=== PATIENT | male | born 1965 | race Caucasian/White ===

== ENCOUNTER 2016-04-26 19:55 | Inpatient (IN) | payer MEDICARE, MEDICAID ==
[~2016-04-26] VITALS: Ht 157.5 cm; Wt 115.7 kg
[~2016-04-26 19:55] MED LIST: AMLODIPINE5 M1 PO; ENALAPRIL MALEA20 MG PO; GLIMEPIRIDE2 M1 PO; LANTI SQ; MET2.5 PO; METFORMIN HCL1000 MG PO; MOTRIN800 MG PO; NOVOLOG MI10 U/0.11 SQ; SIMVASTATIN40 M1 PO; SULFASALAZINE500 M1 PO; ZOF4 PO
[2016-04-26 21:08] LABS: BASOPHIL % 1.8 % (0-2); PLATELET COUNT 188 x10^3mcL (130-400)
[2016-04-26 21:10] LABS: RED CELL DISTRIBUTION WIDTH 15.1 % (11.5-14.5)
[2016-04-26 21:34] LABS: BILIRUBIN TOTAL 0.3 mg/dL (0.20-1.00); CALCIUM 8.2 mg/dL (8.5-10.1); CARBON DIOXIDE 29.8 mmol/L (21-32); POTASSIUM SERUM 4.1 mmol/L (3.5-5.1); TOTAL PROTEIN, SERUM 7.1 g/dL (6.4-8.2)
[2016-04-26 21:36] LABS: CREATININE SERUM 6.7 mg/dL (0.7-1.3)
[2016-04-26 23:40] LABS: microscopic required? YES; urine erythrocyte 2+ (NEGATIVE)
[2016-04-26 23:57] LABS: AMPHETAMINE QUAL UR NONE DETECTED (NEG <=1000)
[2016-04-27] VITALS (9 sets, daily range): BP systolic 140–202; BP diastolic 61–93
[2016-04-27 00:01] LABS: T3 TOTAL 0.79 ng/mL
[2016-04-27 00:02] LABS: CHOLESTEROL/HDL RATIO 4.9
[2016-04-27 00:10] LABS: FREE T4 1.03 ng/dL (0.76-1.46); FREE THYROXINE INDEX 2.3 ug/dL (1.4-4.5); T4(THYROXINE) 6.6 ug/dL (4.7-13.3)
[2016-04-27] MEDS ORDERED: CARVEDILOL12.5 M1 PO (02:45)
[2016-04-27 07:00] LABS: CALCIUM 8.2 mg/dL (8.5-10.1); CARBON DIOXIDE 28.8 mmol/L (21-32); PHOSPHOROUS 6.1 mg/dL (2.5-4.9)
[2016-04-27 07:02] LABS: BASOPHIL % 0.7 % (0-2); PLATELET COUNT 192 x10^3mcL (130-400)
[2016-04-27 07:04] LABS: RED CELL DISTRIBUTION WIDTH 14.9 % (11.5-14.5)
[2016-04-27 07:05] LABS: CREATININE SERUM 6.8 mg/dL (0.7-1.3)
[2016-04-28] VITALS (8 sets, daily range): BP systolic 117–207; BP diastolic 75–96
[2016-04-28 06:39] LABS: BASOPHIL % 0.7 % (0-2); PLATELET COUNT 188 x10^3mcL (130-400)
[2016-04-28 06:49] LABS: RED CELL DISTRIBUTION WIDTH 14.9 % (11.5-14.5)
[2016-04-28 06:55] LABS: CALCIUM 8.1 mg/dL (8.5-10.1); CARBON DIOXIDE 26.2 mmol/L (21-32); MAGNESIUM 1.8 mg/dL (1.8-2.4); PHOSPHOROUS 6.1 mg/dL (2.5-4.9); POTASSIUM SERUM 3.9 mmol/L (3.5-5.1)
[2016-04-28 07:33] LABS: CREATININE SERUM 7.7 mg/dL (0.7-1.3)
[2016-04-29 05:53] VITALS: BP 181/72
[2016-04-29 06:29] VITALS: BP 152/72
[2016-04-29 06:47] LABS: BASOPHIL % 0.8 % (0-2); PLATELET COUNT 214 x10^3mcL (130-400)
[2016-04-29 06:49] LABS: RED CELL DISTRIBUTION WIDTH 15.1 % (11.5-14.5)
[2016-04-29 06:55] LABS: CARBON DIOXIDE 27.5 mmol/L (21-32); MAGNESIUM 1.9 mg/dL (1.8-2.4); POTASSIUM SERUM 3.7 mmol/L (3.5-5.1)
[2016-04-29 07:21] LABS: CREATININE SERUM 6.6 mg/dL (0.7-1.3)
[2016-04-29 09:08] VITALS: BP 147/87
[2016-04-29 09:36] VITALS: BP 152/72
[2016-04-29] MEDS ORDERED: ASPIR 8181 MG PO (11:57)
== END 2016-04-29 15:42 | disposition home or self-care (01) | DRG 438 ==
LOC: ED 19:55 → DU 22:20 → MU 22:20 → DU 23:39 → MU 04-28 10:42
PROVIDERS: Emergency Medicine; Family Medicine; ADMIT Family Medicine
DX: K85.90 Acute pancreatitis without necrosis or infection, unspecified (principal); N17.0 Acute kidney failure with tubular necrosis; N18.6 End stage renal disease; I50.43 Acute on chronic combined systolic (congestive) and diastolic (congestive) heart failure; I13.2 Hypertensive heart and chronic kidney disease with heart failure and with stage 5 chronic kidney disease, or end stage renal disease; E87.1 Hypo-osmolality and hyponatremia; E44.0 Moderate protein-calorie malnutrition; Z68.42 Body mass index [BMI] 45.0-49.9, adult; I42.0 Dilated cardiomyopathy; E11.65 Type 2 diabetes mellitus with hyperglycemia; E11.21 Type 2 diabetes mellitus with diabetic nephropathy; M06.9 Rheumatoid arthritis, unspecified; H91.92 Unspecified hearing loss, left ear; D63.1 Anemia in chronic kidney disease; E78.5 Hyperlipidemia, unspecified; E66.01 Morbid (severe) obesity due to excess calories; H91.8X1 Other specified hearing loss, right ear; Z99.2 Dependence on renal dialysis; Z79.4 Long term (current) use of insulin; Z79.899 Other long term (current) drug therapy; Z79.84 Long term (current) use of oral hypoglycemic drugs
CPT/HCPCS: 80307; 82962; 83880; 84439; J0360; J1815; J2270; J2405; J3490; J7030; J7042; Q0092

== ENCOUNTER → 2016-05-28 | Outpatient (CLI) | payer OTHER, MEDICAID ==
[~2016-05-28] MED LIST changes: +ASPIR 8181 MG PO; +CARVEDILOL12.5 M1 PO
== END | disposition home or self-care (01) ==
LOC: RD 10:17
DX: I50.9 Heart failure, unspecified (principal)

== ENCOUNTER → 2016-11-29 | Outpatient (CLI) | payer OTHER, MEDICAID | END | disposition home or self-care (01) | LOC: RD 11:40 | DX: M54.5 Low back pain (principal) ==

== ENCOUNTER 2016-12-03 05:08 | Inpatient (IN) | payer OTHER, MEDICAID ==
[2016-12-03] VITALS (7 sets, daily range): BP systolic 121–151; BP diastolic 40–64
[~2016-12-03] VITALS: Ht 157.5 cm; Wt 128.8 kg
[~2016-12-03 05:08] MED LIST changes: -AMLODIPINE5 M1 PO; +NOR5 PO
[2016-12-03 07:12] LABS: ALBUMIN 3.5 g/dL (3.4-5.0); BILIRUBIN TOTAL 0.2 mg/dL (0.20-1.00); CALCIUM 8.2 mg/dL (8.5-10.1); CARBON DIOXIDE 22.9 mmol/L (21-32); PLATELET COUNT 227 x10^3mcL (130-400); TOTAL PROTEIN, SERUM 7.7 g/dL (6.4-8.2)
[2016-12-03 07:16] LABS: POTASSIUM SERUM 7.1 mmol/L (3.5-5.1)
[2016-12-03 07:17] LABS: BASOPHIL % 0 % (0-2); CREATININE SERUM 15.4 mg/dL (0.7-1.3); RED CELL DISTRIBUTION WIDTH 16.5 % (11.5-14.5)
[2016-12-03] MEDS ORDERED: TRAMADOL HCL50 MG PO (08:34)
[2016-12-03] MEDS ORDERED: STOOL SOFTENER PO (08:35)
[2016-12-03] MEDS ORDERED: FIBER PO (08:35)
[2016-12-03] MEDS ORDERED: MULTIVITAMIN1 SGL PO (08:35)
[2016-12-03] MEDS ORDERED: ENBREL50 MG/ML (08:36)
[2016-12-03] MEDS ORDERED: ATORVASTATIN CA20 M1 PO (08:36)
[2016-12-03] MEDS ORDERED: AURYXIA1 GM PO (08:37)
[2016-12-03] MEDS ORDERED: CYCLOBENZAPRINE5 MG PO (08:38)
[2016-12-03 08:48] LABS: PHOSPHOROUS 5.7 mg/dL (2.5-4.9)
[2016-12-03 08:50] LABS: CHOLESTEROL/HDL RATIO 4.4
[2016-12-03 08:56] LABS: FREE T4 0.69 ng/dL (0.76-1.46); FREE THYROXINE INDEX 1.7 ug/dL (1.4-4.5); T4(THYROXINE) 4.9 ug/dL (4.7-13.3)
[2016-12-03 09:07] LABS: T3 TOTAL 0.8 ng/mL
[2016-12-03 09:11] LABS: microscopic required? YES; urine erythrocyte 2+ (NEGATIVE)
[2016-12-03 12:54] LABS: CARBON DIOXIDE 25.1 mmol/L (21-32)
[2016-12-03 12:58] LABS: CREATININE SERUM 15.1 mg/dL (0.7-1.3)
[2016-12-03 22:15] LABS: CALCIUM 8.5 mg/dL (8.5-10.1); CARBON DIOXIDE 26.4 mmol/L (21-32); POTASSIUM SERUM 5.5 mmol/L (3.5-5.1)
[2016-12-03 22:21] LABS: CREATININE SERUM 13.9 mg/dL (0.7-1.3)
[2016-12-04 06:14] VITALS: BP 134/68
[2016-12-04 07:10] LABS: CALCIUM 8.3 mg/dL (8.5-10.1); POTASSIUM SERUM 5.4 mmol/L (3.5-5.1)
[2016-12-04 07:13] LABS: CREATININE SERUM 14.3 mg/dL (0.7-1.3)
[2016-12-04 10:31] LABS: CARBON DIOXIDE 26.9 mmol/L (21-32); POTASSIUM SERUM 5.5 mmol/L (3.5-5.1)
[2016-12-04 10:33] LABS: CREATININE SERUM 14.8 mg/dL (0.7-1.3)
[2016-12-04 13:08] VITALS: BP 148/66
[2016-12-04 16:44] VITALS: BP 107/65
[2016-12-04] MEDS ORDERED: CYCLOBENZAPRINE10 MG PO (17:40)
[2016-12-04 18:57] LABS: CALCIUM 8.3 mg/dL (8.5-10.1); CARBON DIOXIDE 29.5 mmol/L (21-32); POTASSIUM SERUM 4.4 mmol/L (3.5-5.1)
[2016-12-04 19:08] LABS: CREATININE SERUM 10.7 mg/dL (0.7-1.3)
[2016-12-04 19:55] VITALS: BP 114/52
[2016-12-04 21:31] VITALS: BP 155/66
[2016-12-05 06:11] VITALS: BP 114/62
[2016-12-05 06:17] LABS: BASOPHIL % 0.9 % (0-2); PLATELET COUNT 220 x10^3mcL (130-400)
[2016-12-05 06:24] LABS: RED CELL DISTRIBUTION WIDTH 16.8 % (11.5-14.5)
[2016-12-05 06:55] LABS: CALCIUM 8.2 mg/dL (8.5-10.1); CARBON DIOXIDE 24.5 mmol/L (21-32); MAGNESIUM 1.9 mg/dL (1.8-2.4); PHOSPHOROUS 7.1 mg/dL (2.5-4.9); POTASSIUM SERUM 5.2 mmol/L (3.5-5.1)
[2016-12-05 07:27] LABS: CREATININE SERUM 12.5 mg/dL (0.7-1.3)
[2016-12-05 09:36] VITALS: BP 141/70
[2016-12-05 11:27] VITALS: BP 141/70
== END 2016-12-05 12:15 | disposition home or self-care (01) | DRG 551 ==
LOC: ED 05:08 → DU 08:03
PROVIDERS: Emergency Medicine; Internal Medicine; ADMIT Family Medicine
PROC: 05HN33Z Insertion of Infusion Device into Left Internal Jugular Vein, Percutaneous Approach (ICD-10-PCS; principal; 2016-12-03)
PROC: B544ZZA Ultrasonography of Left Jugular Veins, Guidance (ICD-10-PCS; 2016-12-03)
DX: M62.830 Muscle spasm of back (principal); N17.0 Acute kidney failure with tubular necrosis; N18.6 End stage renal disease; E43 Unspecified severe protein-calorie malnutrition; I12.0 Hypertensive chronic kidney disease with stage 5 chronic kidney disease or end stage renal disease; E87.1 Hypo-osmolality and hyponatremia; Z68.43 Body mass index [BMI] 50.0-59.9, adult; T82.868A Thrombosis due to vascular prosthetic devices, implants and grafts, initial encounter; E11.22 Type 2 diabetes mellitus with diabetic chronic kidney disease; E11.65 Type 2 diabetes mellitus with hyperglycemia; E87.5 Hyperkalemia; E87.8 Other disorders of electrolyte and fluid balance, not elsewhere classified; E83.51 Hypocalcemia; D63.1 Anemia in chronic kidney disease; E83.39 Other disorders of phosphorus metabolism; K21.9 Gastro-esophageal reflux disease without esophagitis; M06.9 Rheumatoid arthritis, unspecified; G47.33 Obstructive sleep apnea (adult) (pediatric); E66.01 Morbid (severe) obesity due to excess calories; Z99.2 Dependence on renal dialysis; Z79.82 Long term (current) use of aspirin; Z79.4 Long term (current) use of insulin
CPT/HCPCS: 82962; 83880; 84439; A4719; J1642; J1815; J1940; J2060; J3010; J3490; J7030; Q0092

== ENCOUNTER 2017-08-23 10:11 | Inpatient (IN) | payer OTHER, MEDICAID ==
[~2017-08-23] VITALS: Ht 157.5 cm; Wt 122.5 kg
[~2017-08-23 10:11] MED LIST changes: +ATORVASTATIN CA20 M1 PO; +AURYXIA1 GM PO; +CYCLOBENZAPRINE10 MG PO; +CYCLOBENZAPRINE5 MG PO; +ENBREL50 MG/ML; +FIBER PO; +MULTIVITAMIN1 SGL PO; +STOOL SOFTENER PO; +TRAMADOL HCL50 MG PO
[2017-08-23 10:43] LABS: BASOPHIL % 1.5 % (0-2); PLATELET COUNT 294 x10^3mcL (130-400)
[2017-08-23 10:49] LABS: RED CELL DISTRIBUTION WIDTH 17.2 % (11.5-14.5)
[2017-08-23 11:12] LABS: BILIRUBIN TOTAL 0.37 mg/dL (0.20-1.00); CALCIUM 9.4 mg/dL (8.5-10.1); CARBON DIOXIDE 29.4 mmol/L (21-32); POTASSIUM SERUM 4.1 mmol/L (3.5-5.1); TOTAL PROTEIN, SERUM 8.1 g/dL (6.4-8.2)
[2017-08-23 11:15] LABS: CREATININE SERUM 4.7 mg/dL (0.7-1.3)
[2017-08-23 12:11] LABS: UA SPECIFIC GRAVITY 1.015 (1.005-1.035); microscopic required? YES; urine erythrocyte NEGATIVE (NEGATIVE)
[2017-08-23 13:18] LABS: MAGNESIUM 1.8 mg/dL (1.8-2.4); PHOSPHOROUS 2.1 mg/dL (2.5-4.9)
[2017-08-23 13:19] LABS: CHOLESTEROL/HDL RATIO 13.1
[2017-08-23 13:22] LABS: AMPHETAMINE QUAL UR NONE DETECTED (See below)
[2017-08-23 13:23] LABS: T3 TOTAL 0.63 ng/mL
[2017-08-23 13:25] LABS: FREE T4 1.11 ng/dL (0.76-1.46); FREE THYROXINE INDEX 2.3 ug/dL (1.4-4.5); T4(THYROXINE) 5.8 ug/dL (4.7-13.3)
[2017-08-23 14:26] VITALS: BP 100/51
[2017-08-23 17:35] VITALS: BP 122/59
[2017-08-24 05:30] VITALS: BP 129/67
[2017-08-24 06:27] LABS: BASOPHIL % 0.4 % (0-2); PLATELET COUNT 272 x10^3mcL (130-400)
[2017-08-24 06:49] LABS: RED CELL DISTRIBUTION WIDTH 17.6 % (11.5-14.5)
[2017-08-24 06:56] LABS: CARBON DIOXIDE 26.6 mmol/L (21-32); POTASSIUM SERUM 4.4 mmol/L (3.5-5.1)
[2017-08-24 07:01] LABS: CREATININE SERUM 6.7 mg/dL (0.7-1.3)
[2017-08-24 07:02] LABS: IRON 29 ug/dL (65-170); TOTAL IRON BINDING CAPACITY 145 ug/dL (250-450)
[2017-08-24 09:32] VITALS: BP 159/67
[2017-08-24 13:59] VITALS: BP 162/77
[2017-08-24 16:39] VITALS: BP 138/65
[2017-08-24 21:43] VITALS: BP 143/84
[2017-08-24 21:52] VITALS: Ht 157.5 cm; Wt 122.5 kg
[2017-08-25 05:50] VITALS: BP 175/60
[2017-08-25 09:02] VITALS: BP 151/56
[2017-08-25 10:40] LABS: BASOPHIL % 0.1 % (0-2); PLATELET COUNT 303 x10^3mcL (130-400)
[2017-08-25 10:55] LABS: CALCIUM 9.4 mg/dL (8.5-10.1); CARBON DIOXIDE 25.8 mmol/L (21-32); POTASSIUM SERUM 4.4 mmol/L (3.5-5.1)
[2017-08-25 11:01] LABS: CREATININE SERUM 8.9 mg/dL (0.7-1.3)
[2017-08-25 13:45] VITALS: BP 147/75
[2017-08-25 17:17] VITALS: BP 143/57
[2017-08-25 20:50] VITALS: BP 126/48
[2017-08-26 05:14] VITALS: BP 140/57
[2017-08-26 06:15] LABS: CALCIUM 8.2 mg/dL (8.5-10.1); CARBON DIOXIDE 25.1 mmol/L (21-32); POTASSIUM SERUM 4.4 mmol/L (3.5-5.1)
[2017-08-26 06:18] LABS: BASOPHIL % 0.3 % (0-2); PLATELET COUNT 257 x10^3mcL (130-400)
[2017-08-26 06:26] LABS: CREATININE SERUM 8.9 mg/dL (0.7-1.3)
[2017-08-26 06:45] LABS: RED CELL DISTRIBUTION WIDTH 17.4 % (11.5-14.5)
[2017-08-26 08:56] VITALS: BP 148/66
[2017-08-26 14:40] VITALS: BP 153/66
[2017-08-26 17:45] VITALS: BP 151/56
[2017-08-26 21:16] VITALS: BP 141/70
[2017-08-27 06:25] VITALS: BP 136/74
[2017-08-27 06:33] LABS: BASOPHIL % 0.5 % (0-2); PLATELET COUNT 239 x10^3mcL (130-400)
[2017-08-27 06:41] LABS: CALCIUM 8.9 mg/dL (8.5-10.1); CARBON DIOXIDE 21.2 mmol/L (21-32); MAGNESIUM 2.1 mg/dL (1.8-2.4); PHOSPHOROUS 5.6 mg/dL (2.5-4.9); POTASSIUM SERUM 4.4 mmol/L (3.5-5.1)
[2017-08-27 06:44] LABS: RED CELL DISTRIBUTION WIDTH 17.2 % (11.5-14.5)
[2017-08-27 06:45] LABS: CREATININE SERUM 10.2 mg/dL (0.7-1.3)
[2017-08-27 09:41] VITALS: BP 161/64
[2017-08-27 12:49] VITALS: BP 141/43
[2017-08-27 17:55] VITALS: BP 154/66
[2017-08-27 20:35] VITALS: BP 139/67
[2017-08-28 05:46] VITALS: BP 114/53
[2017-08-28 06:32] LABS: BASOPHIL % 0.4 % (0-2); PLATELET COUNT 277 x10^3mcL (130-400)
[2017-08-28 07:13] LABS: CALCIUM 8.8 mg/dL (8.5-10.1); CARBON DIOXIDE 19.4 mmol/L (21-32); POTASSIUM SERUM 5.1 mmol/L (3.5-5.1)
[2017-08-28 07:17] LABS: RED CELL DISTRIBUTION WIDTH 16.9 % (11.5-14.5)
[2017-08-28 07:22] LABS: CREATININE SERUM 11.9 mg/dL (0.7-1.3)
[2017-08-28 09:06] VITALS: BP 151/67
[2017-08-28 11:48] VITALS: BP 173/58
[2017-08-28 17:08] VITALS: BP 167/79
[2017-08-28 20:58] VITALS: BP 118/63
[2017-08-29 06:16] VITALS: BP 140/58
[2017-08-29 07:54] LABS: BASOPHIL % 0.5 % (0-2); PLATELET COUNT 253 x10^3mcL (130-400)
[2017-08-29 08:00] LABS: RED CELL DISTRIBUTION WIDTH 17.2 % (11.5-14.5)
[2017-08-29 08:14] LABS: CARBON DIOXIDE 22.6 mmol/L (21-32); POTASSIUM SERUM 5.2 mmol/L (3.5-5.1)
[2017-08-29 09:30] VITALS: BP 130/56
[2017-08-29 10:09] LABS: CREATININE SERUM 13.7 mg/dL (0.7-1.3)
[2017-08-29 12:30] VITALS: BP 108/57
[2017-08-29 13:14] VITALS: BP 125/68
[2017-08-29 18:12] VITALS: BP 131/61
[2017-08-29 21:44] VITALS: BP 132/53
[2017-08-30 06:00] VITALS: BP 141/59
[2017-08-30 06:43] LABS: BASOPHIL % 0.6 % (0-2); PLATELET COUNT 245 x10^3mcL (130-400)
[2017-08-30 06:46] LABS: CARBON DIOXIDE 27.6 mmol/L (21-32); MAGNESIUM 1.9 mg/dL (1.8-2.4); PHOSPHOROUS 6.6 mg/dL (2.5-4.9); POTASSIUM SERUM 4.3 mmol/L (3.5-5.1)
[2017-08-30 06:48] LABS: CREATININE SERUM 9.9 mg/dL (0.7-1.3)
[2017-08-30 06:52] LABS: RED CELL DISTRIBUTION WIDTH 17.2 % (11.5-14.5)
[2017-08-30 14:11] VITALS: BP 147/71
[2017-08-30 17:51] VITALS: BP 135/45
[2017-08-30 21:05] VITALS: BP 166/60
[2017-08-31 01:44] VITALS: BP 152/65
[2017-08-31 05:02] VITALS: BP 147/65
[2017-08-31 09:32] VITALS: BP 138/66
[2017-08-31 09:48] LABS: CALCIUM 8.6 mg/dL (8.5-10.1); CARBON DIOXIDE 27.6 mmol/L (21-32); POTASSIUM SERUM 4.1 mmol/L (3.5-5.1)
[2017-08-31 09:52] LABS: CREATININE SERUM 9.3 mg/dL (0.7-1.3)
[2017-08-31 13:21] VITALS: BP 145/71
[2017-08-31] MEDS ORDERED: Z5 PO (13:40)
[2017-08-31] MEDS ORDERED: LASIX40 MG PO (13:40)
[2017-08-31] MEDS ORDERED: CIPRO500 MG PO (13:41)
[2017-08-31 16:30] VITALS: BP 145/71
== END 2017-08-31 17:31 | disposition home or self-care (01) | DRG 264 ==
LOC: ED 10:11 → DU 11:46
PROVIDERS: Emergency Medicine; Family Medicine; Internal Medicine; Internal Medicine Nephrology; Surgery
PROC: 05PY33Z Removal of Infusion Device from Upper Vein, Percutaneous Approach (ICD-10-PCS; 2017-08-24)
PROC: 05H533Z Insertion of Infusion Device into Right Subclavian Vein, Percutaneous Approach (ICD-10-PCS; 2017-08-27)
PROC: 03180JD Bypass Left Brachial Artery to Upper Arm Vein with Synthetic Substitute, Open Approach (ICD-10-PCS; principal; 2017-08-27 13:00)
DX: T82.7XXA Infection and inflammatory reaction due to other cardiac and vascular devices, implants and grafts, initial encounter (principal); N18.6 End stage renal disease; A41.59 Other Gram-negative sepsis; N17.0 Acute kidney failure with tubular necrosis; N25.81 Secondary hyperparathyroidism of renal origin; Z68.42 Body mass index [BMI] 45.0-49.9, adult; N39.0 Urinary tract infection, site not specified; I12.0 Hypertensive chronic kidney disease with stage 5 chronic kidney disease or end stage renal disease; E11.22 Type 2 diabetes mellitus with diabetic chronic kidney disease; E11.65 Type 2 diabetes mellitus with hyperglycemia; E11.21 Type 2 diabetes mellitus with diabetic nephropathy; E11.42 Type 2 diabetes mellitus with diabetic polyneuropathy; E78.00 Pure hypercholesterolemia, unspecified; M06.9 Rheumatoid arthritis, unspecified; E66.01 Morbid (severe) obesity due to excess calories; D63.1 Anemia in chronic kidney disease; E78.1 Pure hyperglyceridemia; Z99.2 Dependence on renal dialysis; Z79.4 Long term (current) use of insulin
CPT/HCPCS: 83880; 84439; A4301; A4719; C1768; J0692; J0696; J0744; J0885-EC; J1580; J1644; J1940; J2001; J2270; J2405; J2704; J2997; J3010; J3370; J3490; J7030; J7050; P9016; Q0092

== ENCOUNTER 2018-07-21 13:06 | Emergency (ER) | payer OTHER, MEDICAID ==
[~2018-07-21] VITALS: Ht 157.5 cm; Wt 122.5 kg
[~2018-07-21 13:06] MED LIST changes: +CIPRO500 MG PO; +LASIX40 MG PO; +Z5 PO
[2018-07-21 13:18] VITALS: Ht 157.5 cm; Wt 122.5 kg
[2018-07-21 15:13] LABS: BASOPHIL % 0.6 % (0-2); PLATELET COUNT 234 x10^3mcL (130-400)
[2018-07-21 15:19] LABS: RED CELL DISTRIBUTION WIDTH 16.2 % (11.5-14.5)
[2018-07-21 15:25] LABS: ALBUMIN 3.9 g/dL (3.4-5.0); BILIRUBIN TOTAL 0.3 mg/dL (0.20-1.00); CALCIUM 9.9 mg/dL (8.5-10.1); CARBON DIOXIDE 32.6 mmol/L (21-32); TOTAL PROTEIN, SERUM 7.8 g/dL (6.4-8.2)
[2018-07-21 15:31] LABS: CREATININE SERUM 7.3 mg/dL (0.7-1.3)
[2018-07-21 16:45] VITALS: BP 177/69
== END 2018-07-21 16:45 | disposition home or self-care (01) ==
LOC: ED 13:06
PROVIDERS: Emergency Medicine
DX: S39.011A Strain of muscle, fascia and tendon of abdomen, initial encounter (principal); E78.00 Pure hypercholesterolemia, unspecified; E11.22 Type 2 diabetes mellitus with diabetic chronic kidney disease; I12.9 Hypertensive chronic kidney disease with stage 1 through stage 4 chronic kidney disease, or unspecified chronic kidney disease; N18.9 Chronic kidney disease, unspecified; Z94.0 Kidney transplant status; Z98.890 Other specified postprocedural states; W18.49XA Other slipping, tripping and stumbling without falling, initial encounter; Y93.01 Activity, walking, marching and hiking; Y92.89 Other specified places as the place of occurrence of the external cause; Y99.8 Other external cause status
CPT/HCPCS: J2270; J2405; J3010